=== PATIENT | female | born 1965 | race Caucasian/White ===

== ENCOUNTER 2019-03-06 15:12 | Emergency (ER) | payer OTHER ==
[~2019-03-06] VITALS: Ht 167.6 cm; Wt 117.0 kg
[2019-03-06] MEDS ORDERED: COMBAER6 (16:12)
[2019-03-06] MEDS ORDERED: CLOP75TA2 PO (16:12)
[2019-03-06] MEDS ORDERED: RANI150T14 PO (16:12)
[2019-03-06] MEDS ORDERED: ATOR40TA75 PO (16:12)
[2019-03-06] MEDS ORDERED: PRED10TA2 PO (16:12)
[2019-03-06] MEDS ORDERED: DIAZ5TAB PO ×2 (16:12)
[2019-03-06 16:42] LABS: BASO # 0.1 10^3/uL (0.0-0.2); BASO % 0.4 % (0.0-1.0); EOS % 0.3 % (0.0-3.0); HEMOGLOBIN 12.8 g/dl (12.0-15.5); LYMPH # 2.6 10^3/uL (1.5-5.0); LYMPH % 22.8 % (24.0-44.0); MEAN CORPUSCULAR HEMOGLOBIN 31.4 pg (27.0-33.0); MEAN CORPUSCULAR HGB CONC 33.7 g/dl (32.0-36.5); MEAN CORPUSCULAR VOLUME 93.1 fl (80.0-96.0); MONO # 0.7 10^3/uL (0.0-0.8); MONO % 5.9 % (0.0-5.0); NEUTROPHILS # 8.2 10^3/uL (1.5-8.5); NEUTROPHILS % 70.3 % (36.0-66.0); PLATELET COUNT, AUTOMATED 149 10^3/uL (150-450); RED BLOOD COUNT 4.08 10^6/uL (4.00-5.40); WHITE BLOOD COUNT 11.6 10^3/uL (4.0-10.0)
[2019-03-06] MEDS ORDERED: ACETAMINOPHEN *IV* 1,000 MG in IV 1 EA IV ONE (16:45)
[2019-03-06 17:42] LABS: ERYTHROCYTE SEDIMENTATION RATE 5 mm/hr (0-30)
[2019-03-06 17:52] LABS: ALBUMIN 3.6 GM/DL (3.2-5.2); ALT/SGPT 23 U/L (12-78); BILIRUBIN,TOTAL 0.3 MG/DL (0.2-1.0); BLOOD UREA NITROGEN 13 MG/DL (7-18); C REACTIVE PROTEIN QUANTITATIV < 0.30 MG/DL (0.00-0.30); CALCIUM LEVEL 8.6 MG/DL (8.5-10.1); CARBON DIOXIDE LEVEL 26 MEQ/L (21-32); CHLORIDE LEVEL 111 MEQ/L (98-107); CREATININE FOR GFR 0.74 MG/DL (0.55-1.30); GLOMERULAR FILTRATION RATE > 60.0 (>51); GLUCOSE, FASTING 98 MG/DL (70-100); POTASSIUM SERUM 5.6 MEQ/L (3.5-5.1); SODIUM LEVEL 141 MEQ/L (136-145)
[2019-03-06] MEDS ORDERED: ISOVUE-370 76% 100ML VIAL (Q9967) As Ordered ONE (17:58)
[2019-03-06] MEDS ORDERED: NS 1,000 ML IV ONE (18:15)
[2019-03-06] MEDS ORDERED: ONDANSETRON 4MG/2ML VIAL (J2405) IV ONE (18:15)
--- NOTE | 2019-03-06 18:25 | REPVR ---
EXAM: CT Maxillofacial With Contrast EXAM DATE/TIME: 03/06/2019 6:02 PM CLINICAL HISTORY: 53 years old, female; Other: Left side tmj swelling/pain TECHNIQUE: Imaging protocol: Computed tomography images of the face with intravenous contrast. Radiation optimization: All CT scans at this facility use at least one of these dose optimization techniques: automated exposure control; mA and/or kV adjustment per patient size (includes targeted exams where dose is matched to clinical indication); or iterative reconstruction. Contrast material: ISOVUE 370; Contrast volume: 75 ml; Contrast route: IV; COMPARISON: No relevant prior studies available. FINDINGS: Orbits: Orbits are normal. Globes are unremarkable. Sinuses: Small retention cyst floor of the left maxillary sinus. Bones/joints: No acute fracture. Both temporomandibular joints are symmetric. Soft tissues: Unremarkable. IMPRESSION: No acute findings. Electronically signed by: Donte Hassan On 03/06/2019 18:24:39 PM
[2019-03-06 19:45] VITALS: BP 124/62
== END 2019-03-06 19:47 | disposition home or self-care (01) ==
LOC: M ED 15:12
DX: I88.9 Nonspecific lymphadenitis, unspecified (principal); R22.0 Localized swelling, mass and lump, head; I10 Essential (primary) hypertension; I25.10 Atherosclerotic heart disease of native coronary artery without angina pectoris; J44.9 Chronic obstructive pulmonary disease, unspecified; Z95.1 Presence of aortocoronary bypass graft; Z95.820 Peripheral vascular angioplasty status with implants and grafts; Z86.718 Personal history of other venous thrombosis and embolism; F17.200 Nicotine dependence, unspecified, uncomplicated; Z88.8 Allergy status to other drugs, medicaments and biological substances; Z79.899 Other long term (current) drug therapy; Z79.52 Long term (current) use of systemic steroids; Z79.02 Long term (current) use of antithrombotics/antiplatelets
CPT/HCPCS: 36415; 70487; 80053; 85025; 85652; 86140; 96365; 96375; 99284; J0131; J2405; Q9967

== ENCOUNTER 2020-03-16 18:31 | Emergency (ER) | payer OTHER ==
[~2020-03-16] VITALS: Ht 167.6 cm; Wt 53.9 kg
[~2020-03-16 18:31] MED LIST: ATOR40TA75 PO; CLOP75TA2 PO; COMBAER6; DIAZ5TAB PO; PRED10TA2 PO; RANI150T14 PO
[2020-03-16 18:32] VITALS: BP 120/68
[2020-03-16] MEDS ORDERED: PANT20TA6 PO (18:48)
[2020-03-16] MEDS ORDERED: BUSP15TA47 PO (18:48)
[2020-03-16] MEDS ORDERED: AUGMENTIN 875 MG TAB PO ONE (20:15)
[2020-03-16] MEDS ORDERED: AUGM875T28 PO (20:41)
== END 2020-03-16 20:43 | disposition home or self-care (01) ==
LOC: M ED 18:31
DX: H66.92 Otitis media, unspecified, left ear (principal); I10 Essential (primary) hypertension; Z86.718 Personal history of other venous thrombosis and embolism; F17.200 Nicotine dependence, unspecified, uncomplicated; Z88.8 Allergy status to other drugs, medicaments and biological substances; Z79.899 Other long term (current) drug therapy

== ENCOUNTER 2020-05-02 21:32 | Emergency (ER) | payer OTHER ==
[~2020-05-02] VITALS: Ht 167.6 cm; Wt 54.3 kg
[~2020-05-02 21:32] MED LIST changes: +AUGM875T28 PO; +BUSP15TA47 PO; +PANT20TA6 PO
[2020-05-02] MEDS ORDERED: ACET-683 PO (21:56)
[2020-05-02] MEDS ORDERED: PRED5PAK2 PO (21:56)
[2020-05-03] MEDS ORDERED: KETOROLAC 30 MG/ML 1ML VIAL IV ONE
--- NOTE | 2020-05-03 00:23 | REPVR ---
PROCEDURE INFORMATION: Exam: XR Chest, 1 View Exam date and time: 05/02/2020 11:55 PM Age: 54 years old Clinical indication: Other: Chest pain TECHNIQUE: Imaging protocol: XR of the chest Views: 1 view. COMPARISON: No relevant prior studies available. FINDINGS: Limitations: The head partially overlies the lung apices. Lungs: Hyperaeration of the lungs. No acute infiltrate. Pleural space: Unremarkable. No pleural effusion. No pneumothorax. Heart/Mediastinum: Unremarkable. No cardiomegaly. Bones/joints: Unremarkable. IMPRESSION: 1. No acute infiltrate. 2. Hyperaeration of the lungs. Electronically signed by: Sean Cooper On 05/03/2020 00:22:46 AM
[2020-05-03 00:39] LABS: BASO # 0.1 10^3/uL (0.0-0.2); BASO % 0.6 % (0.0-1.0); EOS # 0.3 10^3/uL (0.0-0.5); EOS % 2.1 % (0.0-3.0); HEMATOCRIT 44.4 % (36.0-47.0); HEMOGLOBIN 14.3 g/dl (12.0-15.5); LYMPH # 5.3 10^3/uL (1.5-5.0); LYMPH % 38.6 % (24.0-44.0); MEAN CORPUSCULAR HEMOGLOBIN 31.4 pg (27.0-33.0); MEAN CORPUSCULAR HGB CONC 32.2 g/dl (32.0-36.5); MEAN CORPUSCULAR VOLUME 97.4 fl (80.0-96.0); MONO # 0.9 10^3/uL (0.0-0.8); MONO % 6.9 % (0.0-5.0); NEUTROPHILS # 6.9 10^3/uL (1.5-8.5); NEUTROPHILS % 50.9 % (36.0-66.0); PLATELET COUNT, AUTOMATED 219 10^3/uL (150-450); RED BLOOD COUNT 4.56 10^6/uL (4.00-5.40)
[2020-05-03 00:40] LABS: WHITE BLOOD COUNT 13.6 10^3/uL (4.0-10.0)
[2020-05-03 01:11] LABS: BLOOD UREA NITROGEN 16 MG/DL (7-18); CALCIUM LEVEL 9.5 MG/DL (8.5-10.1); CARBON DIOXIDE LEVEL 25 MEQ/L (21-32); CHLORIDE LEVEL 107 MEQ/L (98-107); CK-MB VALUE MASS < 1.0 NG/ML (<3.6); CPK CREATINE PHOSPHOKINASE 45 U/L (26-192); CREATININE FOR GFR 0.76 MG/DL (0.55-1.30); GLOMERULAR FILTRATION RATE > 60.0 (>51); GLUCOSE, FASTING 87 MG/DL (70-100); MB/CK RELATIVE INDEX 2.22 (< OR =4); POTASSIUM SERUM 4.4 MEQ/L (3.5-5.1); SODIUM LEVEL 138 MEQ/L (136-145); TROPONIN I < 0.02 NG/ML (< 0.10)
[2020-05-03 02:41] VITALS: BP 131/77
[2020-05-03] MEDS ORDERED: CYCL5TAB PO (02:42)
[2020-05-03] MEDS ORDERED: CYCLOBENZAPRINE 5MG TABLET PO ONE (02:45)
--- NOTE | 2020-05-04 09:02 | ECGEPIP ---
[facility] - ED Test Date: 2020-05-03 Pat Name: LILY BONE Department: Room: - Gender: Female [employer]: jorge : 1965 Requested By: HILLARY Bush Order Number: [id number] Reading MD: Raysa Kan Measurements Intervals [place] Rate: 57 P: 9 NC: 107 QRS: 68 QRSD: 95 T: 58 QT: 400 QTc: 391 Interpretive Statements SINUS BRADYCARDIA WITH SHORT NC INTERVAL No prior Electronically Signed on 05-04-2020 9:01:36 EST by Raysa Kan
== END 2020-05-03 03:02 | disposition home or self-care (01) ==
LOC: M ED 21:32
DX: M54.9 Dorsalgia, unspecified (principal); R05 Cough; J44.9 Chronic obstructive pulmonary disease, unspecified; E78.5 Hyperlipidemia, unspecified; K21.9 Gastro-esophageal reflux disease without esophagitis; F17.210 Nicotine dependence, cigarettes, uncomplicated; Z79.899 Other long term (current) drug therapy; Z79.02 Long term (current) use of antithrombotics/antiplatelets; Z79.52 Long term (current) use of systemic steroids; Z88.1 Allergy status to other antibiotic agents; Z88.8 Allergy status to other drugs, medicaments and biological substances
CPT/HCPCS: 71045; 80048; 82550; 82553; 85025; 93005; 93041; 94760; 99285; U0002

== ENCOUNTER 2025-05-20 01:53 | Emergency (ER) | payer OTHER ==
[~2025-05-20] VITALS: Ht 167.6 cm; Wt 54.5 kg
[~2025-05-20 01:53] MED LIST changes: +ACET-683 PO; +CYCL5TAB4 PO; +PRED5PAK2 PO
[2025-05-20] MEDS ORDERED: LEVOTAB10 PO (07:46)
[2025-05-20] MEDS ORDERED: LEVO1TAB39 PO (07:46)
[2025-05-20] MEDS ORDERED: NYST-38 PO (07:46)
[2025-05-20 07:55] VITALS: BP 137/65; TEMP 98; O2SAT 96
== END 2025-05-20 08:00 | disposition home or self-care (01) ==
LOC: M ED 01:53
DX: H66.001 Acute suppurative otitis media without spontaneous rupture of ear drum, right ear (principal); J44.9 Chronic obstructive pulmonary disease, unspecified; F17.210 Nicotine dependence, cigarettes, uncomplicated; Z88.1 Allergy status to other antibiotic agents; Z88.8 Allergy status to other drugs, medicaments and biological substances; Z79.1 Long term (current) use of non-steroidal anti-inflammatories (NSAID); Z79.51 Long term (current) use of inhaled steroids; Z79.899 Other long term (current) drug therapy; Z79.52 Long term (current) use of systemic steroids